=== PATIENT | male | born 1940 | race American Indian/Alaskan Native ===

== ENCOUNTER 2018-08-04 11:18 | Day surgery (SDC) | payer MEDICARE ==
[~2018-08-04 11:18] MED LIST: IOPIDINE ONE; IOPIDINE OS ONE; MYDRIACYL ONE; MYDRIACYL OS ONE; NEOFRIN ONE; NEOFRIN OS ONE
[2018-08-04] MEDS ORDERED: NEOFRIN OS ONE (11:35)
[2018-08-04] MEDS ORDERED: IOPIDINE OS ONE (11:35)
[2018-08-04] MEDS ORDERED: MYDRIACYL OS ONE (11:35)
[2018-08-04 12:17] VITALS: BP 174/54
== END 2018-08-04 11:19 | disposition home or self-care (01) ==
LOC: OR 11:18
PROVIDERS: ATTEND Specialist
DX: E11.36 Type 2 diabetes mellitus with diabetic cataract (principal); H26.492 Other secondary cataract, left eye; E78.00 Pure hypercholesterolemia, unspecified; I10 Essential (primary) hypertension; K21.9 Gastro-esophageal reflux disease without esophagitis; Z72.89 Other problems related to lifestyle; Z98.890 Other specified postprocedural states; Z79.899 Other long term (current) drug therapy; Z98.42 Cataract extraction status, left eye; Z98.41 Cataract extraction status, right eye
CPT/HCPCS: 82962